=== PATIENT | female | born 1935 | race Caucasian/White ===

== ENCOUNTER 2022-04-04 10:00 | Inpatient (IN) | payer MEDICARE, BC ==
[~2022-04-04] VITALS: Ht 152.4 cm; Wt 50.8 kg
[2022-04-04 10:52] LABS: HEMATOCRIT. 33.1 % (36.0-48.0); MEAN CORPUSCULAR HEMOGLOBIN 28.8 pg (28.0-32.0); MEAN CORPUSCULAR VOLUME 86.9 fL (81.0-99.0); MEAN PLATELET VOLUME 7.5 fl (7.4-10.4); PLATELET 381 x1000/uL (130-400); RED CELL DISTRIBUTION WIDTH 15.4 % (11.6-14.6)
[2022-04-04 11:01] LABS: CHLORIDE 103 mEq/L (98-107)
[2022-04-04 11:13] LABS: CREATINE KINASE 498 IU/L (26-192); ETHANOL BLOOD < 10 mg/dL
[2022-04-04 11:42] LABS: PLATELET ESTIMATE NORMAL
[2022-04-04] MEDS ORDERED: ASPIRIN 325MG EC TABLET PO NR (13:45)
[2022-04-04 17:30] VITALS: BP 118/50
[2022-04-04 18:26] VITALS: BP 118/50
[2022-04-04] MEDS ORDERED: DEXTROSE 50% WATER 50ML SYRINGE IV PRN (19:45)
[2022-04-04] MEDS: AMLODIPINE 10MG TABLET PO SCH (19:45)
[2022-04-04 20:00] VITALS: BP 98/52
[2022-04-04] MEDS ORDERED: POLYVINYL ALCOHOL OPHTH DROPS 15ML BOTHEYE PRN (20:30)
[2022-04-04] MEDS ORDERED: NON FORMULARY PATIENT HOME MED XX SCH (20:30)
[2022-04-04] MEDS: BLOOD SUGAR DIAGNOSTIC STRIP TEST SCH (20:41)
[2022-04-04] MEDS: INSULIN LISPRO 100 UNITS/ML SUBCUT SCH (20:41)
[2022-04-04] MEDS ORDERED: BENA-8 PO (20:45)
[2022-04-04] MEDS ORDERED: FLUO1POW12 PO (20:47)
[2022-04-04] MEDS ORDERED: METF-414 PO (20:48)
[2022-04-04] MEDS: DORZOLAM/TIMOLOL 2.23/0.68% OPHTH DROPS 10ML RIGHTEYE SCH (21:00)
[2022-04-04] MEDS ORDERED: CYAN50003 PO (21:01)
[2022-04-04] MEDS ORDERED: DORZ10DR9 RIGHTEYE (21:27)
[2022-04-04] MEDS ORDERED: NETA2.5D EACHEYE (21:27)
[2022-04-04] MEDS ORDERED: GLIP5TAB12 PO (21:27)
[2022-04-04] MEDS ORDERED: POLY15DR31 EACHEYE (21:27)
[2022-04-04] MEDS ORDERED: LATA5DRO EACHEYE (21:27)
[2022-04-04] MEDS ORDERED: BRIM10DR18 BOTHEYE (21:27)
[2022-04-04] MEDS ORDERED: SODI15DR7 EACHEYE (21:27)
[2022-04-04] MEDS: BRIMONIDINE 0.2% OPHTH DROPS 5ML BOTHEYE SCH (21:30)
[2022-04-05] VITALS: BP 106/43
[2022-04-05 04:00] VITALS: BP_SYST 103; BP_SYST 114; BP_DIAS 37; BP_DIAS 58
[2022-04-05] MEDS: BRIMONIDINE 0.2% OPHTH DROPS 5ML BOTHEYE SCH ×3 (05:33→20:52)
[2022-04-05] MEDS: BLOOD SUGAR DIAGNOSTIC STRIP TEST SCH (06:49)
[2022-04-05] MEDS: INSULIN LISPRO 100 UNITS/ML SUBCUT SCH (07:35)
[2022-04-05 08:00] VITALS: BP 112/53
[2022-04-05] MEDS: DORZOLAM/TIMOLOL 2.23/0.68% OPHTH DROPS 10ML RIGHTEYE SCH ×2 (08:59→20:52)
[2022-04-05] MEDS: ENOXAPARIN 30MG/0.3ML SYR SUBCUT SCH (09:00)
[2022-04-05] MEDS ORDERED: ASPIRIN 81MG TABLET PO SCH (09:00)
[2022-04-05] MEDS: OPTHALMIC OP SCH ×5 (09:00→20:52)
[2022-04-05] MEDS: [UNRECOGNIZED DRUG - OTHER] OP SCH ×4 (09:00→20:52)
[2022-04-05] MEDS: DONEPEZIL HCL 10MG TABLET PO SCH (09:01)
[2022-04-05] MEDS: AMLODIPINE 10MG TABLET PO SCH (09:01)
[2022-04-05] MEDS: METFORMIN HCL 500MG TABLET PO SCH ×2 (09:01→17:56)
[2022-04-05 09:19] LABS: BASOPHILS % 0.5 % (0.0-2.0); EOSINOPHILS % 4.1 % (0.0-5.0); HEMATOCRIT. 25.8 % (36.0-48.0); HEMOGLOBIN. 8.7 g/dL (12.0-16.0); MEAN CORPUSCULAR HEMOGLOBIN 29.3 pg (28.0-32.0); MEAN CORPUSCULAR VOLUME 86.2 fL (81.0-99.0); MEAN PLATELET VOLUME 7.7 fl (7.4-10.4); MONOCYTES % 6.6 % (2.0-8.0); NEUTROPHILS % 67.8 % (40.0-76.0); PLATELET 308 x1000/uL (130-400); RED BLOOD CELL COUNT 2.99 mill/uL (4.2-5.4); RED CELL DISTRIBUTION WIDTH 15.3 % (11.6-14.6)
[2022-04-05 09:22] LABS: CHLORIDE 105 mEq/L (98-107)
[2022-04-05 09:36] LABS: HDL CHOLESTEROL 41 mg/dL (40-59); LDL CHOLESTEROL 178 mg/dL (5-100)
[2022-04-05 12:00] VITALS: BP 117/61
[2022-04-05 16:01] VITALS: BP 106/55
[2022-04-05] MEDS ORDERED: CEFTRIAXONE 1 G PREMIX 50 ML IV SCH (17:00)
[2022-04-05] MEDS: CEFTRIAXONE 1,000 MG in DEXTROSE 5% WATER 50 ML IV SCH (18:00)
[2022-04-05 18:14] LABS: CLARITY URINE CLEAR (CLEAR); COLOR URINE YELLOW (YELLOW); KETONES URINE NEGATIVE (NEGATIVE); LEUKOCYTE ESTERASE URINE TRACE (NEGATIVE); NITRITE URINE NEGATIVE (NEGATIVE); OCCULT BLOOD URINE NEGATIVE (NEGATIVE); PH URINE 5.5 (4.5-8.0); PROTEIN URINE NEGATIVE (NEGATIVE); SPECIFIC GRAVITY URINE 1.011 (1.005-1.030); UROBILINOGEN URINE 0.2 E.U./dL (0.2-1.0)
[2022-04-05] MEDS ORDERED: PROP10DR2 EACHEYE (18:22)
[2022-04-05 18:45] LABS: *AMPHETAMINES SCREEN URINE NEGATIVE (NEGATIVE); *BARBITURATES SCREEN URINE NEGATIVE (NEGATIVE); *BENZODIAZEPINES SCREEN URINE NEGATIVE (NEGATIVE); *COCAINE SCREEN URINE NEGATIVE (NEGATIVE); CANNABINOID URINE SCREEN NEGATIVE (NEGATIVE); METHADONE URINE SCREEN NEGATIVE (NEGATIVE); OPIATES URINE SCREEN NEGATIVE (NEGATIVE); PHENCYCLIDINE URINE SCREEN NEGATIVE (NEGATIVE)
[2022-04-05 19:59] VITALS: BP 99/52
[2022-04-05] MEDS: NETARSUDIL 0.02% OP SCH (20:52)
[2022-04-05] MEDS: PROPYLENE GLYCOL OP SCH (20:52)
[2022-04-05] MEDS: POLYETHYLENE GLYCOL 400 OP SCH (20:52)
[2022-04-05] MEDS: VYZULTA 0.024% OP SCH (20:52)
[2022-04-05] MEDS: ATORVASTATIN CALCIUM 40MG TABLET PO SCH (21:00)
[2022-04-06 04:00] VITALS: BP 152/75
[2022-04-06] MEDS: BRIMONIDINE 0.2% OPHTH DROPS 5ML BOTHEYE SCH ×3 (05:14→21:52)
[2022-04-06 08:00] VITALS: BP 144/66
[2022-04-06] MEDS: PROPYLENE GLYCOL OP SCH ×4 (09:00→21:00)
[2022-04-06] MEDS: POLYETHYLENE GLYCOL 400 OP SCH ×4 (09:00→21:00)
[2022-04-06] MEDS: DONEPEZIL HCL 10MG TABLET PO SCH (10:18)
[2022-04-06] MEDS: METFORMIN HCL 500MG TABLET PO SCH ×2 (10:18→17:00)
[2022-04-06] MEDS: ENOXAPARIN 30MG/0.3ML SYR SUBCUT SCH (10:20)
[2022-04-06] MEDS: [UNRECOGNIZED DRUG - OTHER] OP SCH ×4 (10:22→21:00)
[2022-04-06] MEDS: OPTHALMIC OP SCH ×5 (10:22→21:00)
[2022-04-06] MEDS: DORZOLAM/TIMOLOL 2.23/0.68% OPHTH DROPS 10ML RIGHTEYE SCH ×2 (10:22→21:00)
[2022-04-06 12:00] VITALS: BP 148/68
[2022-04-06 16:00] VITALS: BP 130/70
[2022-04-06] MEDS: CEFTRIAXONE 1,000 MG in DEXTROSE 5% WATER 50 ML IV SCH (17:03)
[2022-04-06 20:00] VITALS: BP 123/56
[2022-04-06] MEDS: VYZULTA 0.024% OP SCH (21:00)
[2022-04-06] MEDS: ATORVASTATIN CALCIUM 40MG TABLET PO SCH (21:00)
[2022-04-06] MEDS: NETARSUDIL 0.02% OP SCH (21:49)
[2022-04-07] VITALS: BP 125/69
[2022-04-07 04:00] VITALS: BP 131/69
[2022-04-07] MEDS: BRIMONIDINE 0.2% OPHTH DROPS 5ML BOTHEYE SCH ×3 (05:51→21:28)
[2022-04-07 08:00] VITALS: BP 113/63
[2022-04-07] MEDS: POLYETHYLENE GLYCOL 400 OP SCH ×4 (09:00→21:00)
[2022-04-07] MEDS: PROPYLENE GLYCOL OP SCH ×4 (09:00→21:00)
[2022-04-07] MEDS: METFORMIN HCL 500MG TABLET PO SCH (10:24)
[2022-04-07] MEDS: DONEPEZIL HCL 10MG TABLET PO SCH (10:24)
[2022-04-07] MEDS: ENOXAPARIN 30MG/0.3ML SYR SUBCUT SCH (10:25)
[2022-04-07] MEDS: DORZOLAM/TIMOLOL 2.23/0.68% OPHTH DROPS 10ML RIGHTEYE SCH ×2 (10:26→21:28)
[2022-04-07] MEDS: [UNRECOGNIZED DRUG - OTHER] OP SCH ×4 (10:27→21:31)
[2022-04-07] MEDS: OPTHALMIC OP SCH ×5 (10:27→21:31)
[2022-04-07 11:51] LABS: BASOPHILS % 0.9 % (0.0-2.0); EOSINOPHILS % 1.5 % (0.0-5.0); HEMATOCRIT. 30.3 % (36.0-48.0); LYMPHOCYTES % 14.9 % (20.0-50.0); MEAN CORPUSCULAR HEMOGLOBIN 28.8 pg (28.0-32.0); MEAN CORPUSCULAR VOLUME 87.7 fL (81.0-99.0); MONOCYTES % 5.7 % (2.0-8.0); PLATELET 348 x1000/uL (130-400); RED BLOOD CELL COUNT 3.46 mill/uL (4.2-5.4); RED CELL DISTRIBUTION WIDTH 15.5 % (11.6-14.6)
[2022-04-07 11:59] LABS: CHLORIDE 105 mEq/L (98-107)
[2022-04-07 12:00] VITALS: BP 127/67
[2022-04-07 16:00] VITALS: BP 110/59
[2022-04-07 20:00] VITALS: BP 133/63
[2022-04-07] MEDS: VYZULTA 0.024% OP SCH (21:00)
[2022-04-07] MEDS: NETARSUDIL 0.02% OP SCH (21:28)
[2022-04-07] MEDS: ATORVASTATIN CALCIUM 40MG TABLET PO SCH (21:29)
[2022-04-08] VITALS: BP 140/72
[2022-04-08 04:00] VITALS: BP 126/66
[2022-04-08] MEDS: BRIMONIDINE 0.2% OPHTH DROPS 5ML BOTHEYE SCH ×3 (06:03→21:59)
[2022-04-08 08:00] VITALS: BP 134/69
[2022-04-08] MEDS: ENOXAPARIN 30MG/0.3ML SYR SUBCUT SCH (09:00)
[2022-04-08] MEDS: POLYETHYLENE GLYCOL 400 OP SCH ×4 (09:00→21:00)
[2022-04-08] MEDS: PROPYLENE GLYCOL OP SCH ×4 (09:00→21:00)
[2022-04-08] MEDS: DONEPEZIL HCL 10MG TABLET PO SCH (09:00)
[2022-04-08] MEDS: [UNRECOGNIZED DRUG - OTHER] OP SCH ×4 (10:15→21:59)
[2022-04-08] MEDS: OPTHALMIC OP SCH ×5 (10:15→21:59)
[2022-04-08] MEDS: DORZOLAM/TIMOLOL 2.23/0.68% OPHTH DROPS 10ML RIGHTEYE SCH ×2 (10:16→21:59)
[2022-04-08 16:00] VITALS: BP 112/56
[2022-04-08 20:00] VITALS: BP 133/65
[2022-04-08] MEDS: ATORVASTATIN CALCIUM 40MG TABLET PO SCH (21:58)
[2022-04-08] MEDS: VYZULTA 0.024% OP SCH (21:59)
[2022-04-08] MEDS: NETARSUDIL 0.02% OP SCH (21:59)
[2022-04-09] VITALS: BP 120/64
[2022-04-09 04:00] VITALS: BP 130/68
[2022-04-09] MEDS: BRIMONIDINE 0.2% OPHTH DROPS 5ML BOTHEYE SCH ×3 (05:02→21:12)
[2022-04-09 08:00] VITALS: BP 125/66
[2022-04-09] MEDS: DONEPEZIL HCL 10MG TABLET PO SCH (09:00)
[2022-04-09] MEDS: PROPYLENE GLYCOL OP SCH ×4 (09:00→21:00)
[2022-04-09] MEDS: POLYETHYLENE GLYCOL 400 OP SCH ×4 (09:00→21:00)
[2022-04-09] MEDS: ENOXAPARIN 30MG/0.3ML SYR SUBCUT SCH (09:00)
[2022-04-09] MEDS: [UNRECOGNIZED DRUG - OTHER] OP SCH ×4 (09:19→21:00)
[2022-04-09] MEDS: OPTHALMIC OP SCH ×5 (09:19→21:14)
[2022-04-09] MEDS: DORZOLAM/TIMOLOL 2.23/0.68% OPHTH DROPS 10ML RIGHTEYE SCH ×2 (09:19→21:00)
[2022-04-09 12:00] VITALS: BP 121/67
[2022-04-09 16:00] VITALS: BP 132/70
[2022-04-09 20:00] VITALS: BP 140/74
[2022-04-09] MEDS: ATORVASTATIN CALCIUM 40MG TABLET PO SCH (21:00)
[2022-04-09] MEDS: NETARSUDIL 0.02% OP SCH (21:14)
[2022-04-09] MEDS: VYZULTA 0.024% OP SCH (21:14)
[2022-04-10] VITALS: BP 131/72
[2022-04-10 04:00] VITALS: BP 135/72
[2022-04-10] MEDS: BRIMONIDINE 0.2% OPHTH DROPS 5ML BOTHEYE SCH ×2 (05:37→17:33)
[2022-04-10 08:00] VITALS: BP 131/64
[2022-04-10] MEDS: ENOXAPARIN 30MG/0.3ML SYR SUBCUT SCH (09:00)
[2022-04-10] MEDS: DONEPEZIL HCL 10MG TABLET PO SCH (09:00)
[2022-04-10] MEDS: [UNRECOGNIZED DRUG - OTHER] OP SCH ×3 (09:17→17:32)
[2022-04-10] MEDS: DORZOLAM/TIMOLOL 2.23/0.68% OPHTH DROPS 10ML RIGHTEYE SCH (09:17)
[2022-04-10] MEDS: PROPYLENE GLYCOL OP SCH ×2 (09:17→09:33)
[2022-04-10] MEDS: OPTHALMIC OP SCH ×3 (09:17→17:32)
[2022-04-10] MEDS: POLYETHYLENE GLYCOL 400 OP SCH ×2 (09:17→09:33)
[2022-04-10 12:00] VITALS: BP 146/51
[2022-04-10 16:00] VITALS: BP 155/58
== END 2022-04-10 19:11 | DRG 73 ==
LOC: ER 10:12 → 6WST 15:54 → EDBEDREQ 16:11 → ENRESERV 16:45 → 6WST 04-09 11:35 → 6EST 04-10 11:32
PROVIDERS: ADMIT Internal Medicine; ATTEND Internal Medicine
DX: G90.8 Other disorders of autonomic nervous system (principal); G93.41 Metabolic encephalopathy; E44.1 Mild protein-calorie malnutrition; E87.1 Hypo-osmolality and hyponatremia; N39.0 Urinary tract infection, site not specified; M62.82 Rhabdomyolysis; I10 Essential (primary) hypertension; D64.9 Anemia, unspecified; R62.7 Adult failure to thrive; E87.6 Hypokalemia; E11.9 Type 2 diabetes mellitus without complications; E78.00 Pure hypercholesterolemia, unspecified; M47.812 Spondylosis without myelopathy or radiculopathy, cervical region; F03.90 Unspecified dementia, unspecified severity, without behavioral disturbance, psychotic disturbance, mood disturbance, and anxiety; R26.9 Unspecified abnormalities of gait and mobility; R53.81 Other malaise; Z68.21 Body mass index [BMI] 21.0-21.9, adult; Z82.49 Family history of ischemic heart disease and other diseases of the circulatory system
CPT/HCPCS: 36415; 71045; 80048; 80053; 80061; 80305; 80320; 81003; 82550; 82962; 83036; 83880; 84484; 85025; 93005; 97162; 97166; 99291; J0696; J1650; J7060; G0480